=== PATIENT | male | born 1955 | race Hispanic/Latino ===

== ENCOUNTER 2022-05-19 16:08 | Emergency (ER) | payer BC ==
[~2022-05-19] VITALS: Ht 175.3 cm; Wt 86.2 kg
[2022-05-19 18:52] VITALS: BP 135/69
== END 2022-05-19 19:18 | disposition home or self-care (01) ==
LOC: EDH 16:08
DX: S00.03XA Contusion of scalp, initial encounter (principal); R51.9 Headache, unspecified; W18.30XA Fall on same level, unspecified, initial encounter; Y93.89 Activity, other specified; Y92.89 Other specified places as the place of occurrence of the external cause; Y99.8 Other external cause status
CPT/HCPCS: 70450; 72125